=== PATIENT | female | born 1985 | race Caucasian/White ===

== ENCOUNTER 2017-06-22 07:55 | Outpatient (CLI) | payer BC | END 2017-06-22 07:56 | disposition home or self-care (01) | LOC: LAB 07:55 | PROVIDERS: ATTEND Obstetrics & Gynecology Reproductive Endocrinology | DX: Z32.00 Encounter for pregnancy test, result unknown (principal) | CPT/HCPCS: 36415; 84702 ==

== ENCOUNTER 2017-06-25 08:01 | Outpatient (CLI) | payer BC | END 2017-06-25 08:02 | disposition home or self-care (01) | LOC: LAB 08:01 | PROVIDERS: ATTEND Obstetrics & Gynecology Reproductive Endocrinology | DX: Z00.00 Encounter for general adult medical examination without abnormal findings (principal); Z32.01 Encounter for pregnancy test, result positive | CPT/HCPCS: 36415; 84443; 84702 ==

== ENCOUNTER 2018-09-27 14:24 | Outpatient (CLI) | payer BC | END 2018-09-27 14:25 | disposition home or self-care (01) | LOC: LAB 14:24 | PROVIDERS: ATTEND Obstetrics & Gynecology Reproductive Endocrinology | DX: Z32.00 Encounter for pregnancy test, result unknown (principal) | CPT/HCPCS: 36415; 84702 ==

== ENCOUNTER 2018-09-29 17:12 | Outpatient (CLI) | payer BC | END 2018-09-29 17:13 | disposition home or self-care (01) | LOC: LAB 17:12 | PROVIDERS: ATTEND Obstetrics & Gynecology Reproductive Endocrinology | DX: Z32.01 Encounter for pregnancy test, result positive (principal); Z13.29 Encounter for screening for other suspected endocrine disorder | CPT/HCPCS: 36415; 84443; 84702 ==

== ENCOUNTER 2020-04-19 09:16 | Emergency (ER) | payer BC ==
[2020-04-19] MEDS ORDERED: SODIUM CHLORIDE 0.9% 1,000 ML IV STA (09:39)
[2020-04-19] MEDS ORDERED: ONDANSETRON 4 MG/2 ML VIAL IVP STA (09:39)
[2020-04-19 09:44] LABS: BASOPHILS % (AUTO) 0.3 %; EOSINOPHILS % (AUTO) 0.2 %; LYMPHOCYTES # (AUTO) 0.3 10^3/uL (1.5-3.5); LYMPHOCYTES % (AUTO) 3.3 %; MEAN CORPUSCULAR HEMOGLOBIN 31.8 pg (27.0-31.0); MEAN CORPUSCULAR HGB CONC 35.5 g/dL (32.0-36.0); MEAN CORPUSCULAR VOLUME 89.7 fL (81.0-99.0); MEAN PLATELET VOLUME 9.5 fL (7.9-10.8); MONOCYTES # (AUTO) 0.5 10^3/uL (0.0-1.0); NEUTROPHILS # (AUTO) 9.2 10^3/uL (1.5-6.6); NEUTROPHILS % (AUTO) 90.8 %; PLT - PLATELET COUNT 217 10^3/uL (130-450); RED BLOOD COUNT 5.03 10^6/uL (4.20-5.40); RED CELL DISTRIBUTION WIDTH 12.9 % (12.0-15.0); WHITE BLOOD COUNT 10.2 x10^3/uL (4.8-10.8)
[2020-04-19 09:54] LABS: ALBUMIN 5.3 g/dL (3.2-5.5); ALBUMIN/GLOBULIN RATIO 1.6 (1.0-2.2); BILIRUBIN,TOTAL 1.2 mg/dL (0.2-1.0); CALCIUM 9.7 mg/dL (8.5-10.3); CREATININE 0.8 mg/dL (0.4-1.0); TOTAL PROTEIN 8.6 g/dL (6.7-8.2)
--- NOTE | 2020-04-19 10:11 | ED Physician Documentation ---
History of Present Illness - Stated complaint Stated Complaint: N/V/D, ABD PX - Chief complaint Chief Complaint: Abd Pain - History obtained from History obtained from: Patient - History of Present Illness Timing: Last night - Additonal information Additional information: Patient comes emergency department complaining of nausea and vomiting with diarrhea that started around 2330 last night. Patient states she had been feeling fine but woke up after sleeping for some time and immediately had to vomit and have diarrhea. Patient states she did not even make it to the bathroom. Patient states that she had abdominal cramping with bouts of vomiting and diarrhea all night long and that her last episode of vomiting was 2 hours ago. Patient states she still feels quite nauseated. Patient denies any other symptoms of illness. No chest pain or shortness of breath. No fevers or chills. No dysuria. Patient denies sick contacts. She states she works at the [employer] but uses a mask and they have barriers up. Patient has a [id number] child at home who is eaten the same food as she has and has not gotten sick. She states she is otherwise healthy. Patient's only other concern is that a notice was sent out in [place] that the water supply had been contaminated with E. coli, and she is wondering if that is a possible cause of her symptoms. No other complaints at this time. Review of Systems Ten Systems: 10 systems reviewed and negative Constitutional: reports: Reviewed and negative Eyes: reports: Reviewed and negative Ears: reports: Reviewed and negative Nose: reports: Reviewed and negative Throat: reports: Reviewed and negative Cardiac: reports: Reviewed and negative Respiratory: reports: Reviewed and negative GI: reports: Abdominal Pain, Nausea, Vomiting, Diarrhea : reports: Reviewed and negative Skin: reports: Reviewed and negative Musculoskeletal: reports: Reviewed and negative Neurologic: reports: Reviewed and negative Psychiatric: reports: Reviewed and negative Endocrine: reports: Reviewed and negative Immunocompromised: reports: Reviewed and negative PD PAST MEDICAL HISTORY - Present Medications Home Medications: Ambulatory Orders Medication Instructions Recorded Confirmed Ondansetron Odt [Zofran] 4 mg TL Q6H PRN #10 tablet 04/19/20 - Allergies Allergies/Adverse Reactions: Allergies Allergy/AdvReac Type Severity Reaction Status Date / Time No Known Drug Allergies Allergy Verified 04/19/20 09:25 PD ED PE NORMAL - Vitals Vital signs reviewed: Yes - General General: Alert and oriented X 3, No acute distress - HEENT HEENT: Atraumatic, PERRL, EOMI, Moist mucous membranes - Neck Neck: Supple, no meningeal sign - Cardiac Cardiac: RRR, No murmur, Strong equal pulses - Respiratory Respiratory: No respiratory distress, Clear bilaterally - Abdomen Abdomen: Soft, Non distended, Other (Mild diffuse tenderness across upper abdomen. No rebound or guarding.) - Derm Derm: Normal color, Warm and dry, No rash - Extremities Extremities: No deformity - Neuro Neuro: Alert and oriented X 3, Other (Grossly normal) - Psych Psych: Normal mood, Normal affect Results - Vitals Vitals: Vital Signs - 24 hr 04/19/20 10:50 Temperature 37.2 C Heart Rate 103 H Respiratory 18 Rate Blood Pressure 138/83 H O2 Saturation 97 Oxygen O2 Source Room air - Labs Labs: Laboratory Tests 04/19/20 04/19/20 09:37 09:37 WBC 10.2 RBC 5.03 Hgb 16.0 Hct 45.1 MCV 89.7 MCH 31.8 H MCHC 35.5 RDW 12.9 Plt Count 217 MPV 9.5 Neut # (Auto) 9.2 H Lymph # (Auto) 0.3 L [place] # (Auto) 0.5 Eos # (Auto) 0.0 Baso # (Auto) 0.0 Absolute Nucleated RBC 0.00 Nucleated RBC % 0.0 Sodium 140 Potassium 3.5 Chloride 100 L Carbon Dioxide 25 Anion Gap 15.0 H BUN 26 H Creatinine 0.8 Estimated GFR (MDRD) 82 L Glucose 135 H Calcium 9.7 Total Bilirubin 1.2 H AST 30 ALT 37 Alkaline Phosphatase 76 Total Protein 8.6 H Albumin 5.3 Globulin 3.3 Albumin/Globulin Ratio 1.6 Lipase 28 PD MEDICAL DECISION MAKING - ED course Complexity details: reviewed results, re-evaluated patient, considered differential, d/w patient ED course: Patient was treated with IV fluids and Zofran worked up with labs, which were unremarkable for concerning abnormalities. We have discussed home management of the sx, as well as the usual indications for return. Departure - Departure Disposition: 01 Home, Self Care Clinical Impression: Gastroenteritis Condition: Stable Instructions: ED Gastroenteritis Viral Prescriptions: Ondansetron Odt [Zofran] 4 mg TL Q6H PRN #10 tablet PRN Reason: Nausea / Vomiting Comments: Your labs look good. The cause of your symptoms is most likely viral, though given the E. coli in the water source, there is a remote possibility that this could be caused by E. coli. In general, both of these illnesses are self- limited and will pass on their own. If you are able to give a stool sample to your primary care physician, then you should do so for further testing, as antibiotics early on can shorten the duration and severity of E. coli infection. If you begin to notice blood in your stools, you should be rechecked. Otherwise, please take the nausea medicine that has been prescribed. You have been hydrated today with a liter of IV fluid, and as such, you should try to put nothing in your stomach, including water, for the next 4 to 6 hours. After this, you may try very small bits of clear liquid at a time, such as sips of water every 20 minutes or ice chips. You may also drink Gatorade or kimberley john, but it should be very small amounts at a time spread out by at least 20 minutes until you are sure your stomach can handle it. Once you are able to tolerate clear liquids and feel hungry, you may advance your diet as tolerated with simple starches that are easy to digest, such as Saltine crackers, Ramen noodles, white rice, or white toast. Eat small amounts of these until you are feeling better and progress as tolerated. Forms: Activity restrictions Discharge Date/Time: 04/19/20 10:50
[2020-04-19 10:50] VITALS: BP 138/83
== END 2020-04-19 10:50 | disposition home or self-care (01) ==
LOC: ED 09:16
DX: K52.9 Noninfective gastroenteritis and colitis, unspecified (principal)
CPT/HCPCS: 36415; 80053; 83690; 85025; 99283; 99284

== ENCOUNTER 2021-06-03 17:06 | Outpatient (CLI) | payer BC | END 2021-06-03 17:07 | disposition home or self-care (01) | LOC: LAB 17:06 | PROVIDERS: ATTEND Obstetrics & Gynecology Reproductive Endocrinology | DX: Z32.00 Encounter for pregnancy test, result unknown (principal) | CPT/HCPCS: 36415; 84702 ==

== ENCOUNTER 2021-06-06 09:59 | Outpatient (CLI) | payer BC | END 2021-06-06 10:00 | disposition home or self-care (01) | LOC: LAB 09:59 | PROVIDERS: ATTEND Obstetrics & Gynecology Reproductive Endocrinology | DX: Z32.00 Encounter for pregnancy test, result unknown (principal); Z13.29 Encounter for screening for other suspected endocrine disorder | CPT/HCPCS: 36415; 84443; 84702 ==

== ENCOUNTER 2021-10-21 13:18 | Outpatient (CLI) | payer BC | END 2021-10-21 13:19 | disposition EMS.NT | LOC: EMS 13:18 | DX: Z04.1 Encounter for examination and observation following transport accident (principal); O99.891 Other specified diseases and conditions complicating pregnancy; R10.9 Unspecified abdominal pain; R07.89 Other chest pain; Z3A.00 Weeks of gestation of pregnancy not specified ==

== ENCOUNTER 2022-04-01 08:00 | Outpatient (CLI) | payer BC ==
--- NOTE | 2022-04-01 16:14 | XRAY Report ---
PROCEDURE: Foot 3 View LT INDICATIONS: CONTUSION OF LEFT LESSER TOES W/O DAMAGE TO NAIL TECHNIQUE: 3 views of the foot were acquired. COMPARISON: None FINDINGS: There is marked volar subluxation and abnormal flexion of the left fifth metatarsophalangea l joint without definite fracture identified, although dedicated toe radiographs would be recommended . IMPRESSION: Near complete dislocation and abnormal flexion of the left fifth metatarsophalangeal joint suggesting at least extensor ligamentous injury and potentially an underlying fracture. Dedicated toe radiograp hs or cross-sectional imaging recommended. Reviewed by: Christopher Davies MD on 04/01/2022 4:13 PM PDT Approved by: Christopher Davies MD on 04/01/2022 4:13 PM PDT Station ID: [id number]
== END 2022-04-01 23:59 | disposition home or self-care (01) ==
LOC: DI.S 08:00 → MERGE 08:00 → DI.S 23:59
PROVIDERS: ATTEND Emergency Medicine
DX: S93.125A Dislocation of metatarsophalangeal joint of left lesser toe(s), initial encounter (principal)

== ENCOUNTER 2024-04-22 09:59 | Outpatient (CLI) | payer BC ==
[2024-04-22 15:35] LABS: BASOPHILS # (AUTO) 0.1 10^3/uL (0.0-0.1); BASOPHILS % (AUTO) 0.6 %; EOSINOPHILS # (AUTO) 0.1 10^3/uL (0.0-0.7); EOSINOPHILS % (AUTO) 1.5 %; HCT - HEMATOCRIT 44.9 % (37.0-47.0); HGB - HEMOGLOBIN 15.5 g/dL (12.0-16.0); LYMPHOCYTES # (AUTO) 2.2 10^3/uL (1.5-3.5); LYMPHOCYTES % (AUTO) 28.3 %; MEAN CORPUSCULAR HEMOGLOBIN 30.8 pg (27.0-31.0); MEAN CORPUSCULAR HGB CONC 34.5 g/dL (32.0-36.0); MEAN CORPUSCULAR VOLUME 89.3 fL (81.0-99.0); MEAN PLATELET VOLUME 10.1 fL (7.9-10.8); MONOCYTES # (AUTO) 0.6 10^3/uL (0.0-1.0); MONOCYTES % (AUTO) 7.9 %; NEUTROPHILS # (AUTO) 4.8 10^3/uL (1.5-6.6); NEUTROPHILS % (AUTO) 61.4 %; PLT - PLATELET COUNT 255 10^3/uL (130-450); RED BLOOD COUNT 5.03 10^6/uL (4.20-5.40); RED CELL DISTRIBUTION WIDTH 13.2 % (12.0-15.0); WHITE BLOOD COUNT 7.8 x10^3/uL (4.8-10.8)
[2024-04-22 16:20] LABS: ALBUMIN 4.7 g/dL (3.2-5.5); ALBUMIN/GLOBULIN RATIO 1.6 (1.0-2.2); ALKALINE PHOSPHATASE 45 IU/L (42-121); ALT ALANINE AMINOTRANSFERASE 39 IU/L (10-60); AST ASPARTATE AMINOTRANSFERASE 28 IU/L (10-42); BILIRUBIN,TOTAL 0.7 mg/dL (0.2-1.0); BUN - BLOOD UREA NITROGEN 13 mg/dL (6-20); CARBON DIOXIDE - CO2 32 mmol/L (21-32); CHLORIDE 97 mmol/L (101-111); CHOL/HDL RATIO 2.8 (<4.4); CHOLESTEROL 225 mg/dL; CREATININE 0.8 mg/dL (0.6-1.3); GFR - MDRD 80 (>89); GLUCOSE 90 mg/dL (74-104); HDL CHOLESTEROL 79 mg/dL; LDL CHOLESTEROL,CALCULATED 120 mg/dL; LDL/HDL RATIO 1.5 (<4.4); POTASSIUM 3.2 mmol/L (3.5-4.5); SODIUM 137 mmol/L (135-145); TOTAL PROTEIN 7.6 g/dL (6.4-8.9); TRIGLYCERIDES 129 mg/dL; VLDL CHOLESTEROL 26 mg/dL
[2024-04-22 16:35] LABS: THYROID STIMULATING HORMONE 0.93 uIU/mL (0.34-5.60)
== END 2024-04-22 10:00 | disposition home or self-care (01) ==
LOC: LAB.S 09:59
PROVIDERS: ATTEND Nurse Practitioner Gerontology
DX: Z00.00 Encounter for general adult medical examination without abnormal findings (principal); R00.2 Palpitations
CPT/HCPCS: 36415; 80053; 80061; 83721; 84436; 84439; 84443; 84481; 85025; 86800